=== PATIENT | female | born 1990 | race Caucasian/White ===

== ENCOUNTER 2018-05-29 18:22 | Outpatient (CLI) | END 2018-05-29 21:10 | disposition home or self-care (01) ==

== ENCOUNTER 2018-07-06 14:00 | Inpatient (IN) | payer OTHER ==
[~2018-07-06] VITALS: Ht 167.6 cm; Wt 78.1 kg
[~2018-07-06 14:00] MED LIST: FERR134T PO; PREN-19 PO
[2018-07-06 14:37] VITALS: Ht 167.6 cm; Wt 78.1 kg
[2018-07-06 18:35] VITALS: BP 128/76; PULSE 92; RESP 18
--- NOTE | 2018-07-06 20:06 | HP ---
Date/Time of Note Date/Time of Note DATE: 07/06/18 TIME: 20:03 OB - History Hx of Present Free Text/Dictation Patient is a 27-year-old 4 para 1 at 40 weeks and 1 day of gestation with estimated date of delivery July 05, 2018 Patient presents for NST and BPP for postdates She reports positive movement, denies any contractions, denies any vaginal bleeding or leaking fluid GBS status is unknown Past obstetrical history significant for x1 Estimated Due Date: Jul 05, 2018 : 4 Para: 1 Care: Good Care Past Family/Social History * Past Medical, Surgical, Family and Obstetric Histories reviewed from chart. OB Admission Exam Vital Signs Vital Signs Vital Signs Date Temp Pulse Resp B/P (MAP) Pulse Ox O2 O2 Flow FiO2 Time Delivery Rate 07/06/18 98.7 92 18 128/76 Room Air 18:35 (93) Physical Exam HEENT: WNL Heart: Rhythm Normal Lungs: Clear, Equal Abdomen: WNL Extremities: Normal Reflexes: Normal Cervical Dilatation: None Effacement: 0% Station: -3 Membranes: Intact Heart Rate: 140's Accelerations: Accelerations Present Decelerations: No Decelerations Varibility: Moderate Contractions on Admission: None Last 72 hours Lab Results PROCEDURE: US OB biophysical profile. CLINICAL INDICATION: post dates evaluate well-being TECHNIQUE: Multiple sonographic images of the pelvis were obtained. The image s were reviewed on a PACS workstation. COMPARISON: 05/29/2018 FINDINGS: There is a single intrauterine gestation. There is a normal amount of amniotic fluid with an RAVI = 15 cm . Cardiac activity is present with 144 beats per minute There is a vertex presentation. The placenta is anterior. Biophysical profile: movement 2/2 tone 2/2. breathing 2/2 RAVI 2/2 Total 02/13 IMPRESSION: 1. Normal biophysical profile of 02/13. 2. Single intrauterine gestation in cephalic presentation. 3. Anterior placenta without evidence of previa or abruption. RPTAT:AAJJ Physician Claudia Date Time Electronically viewed and signed by Physician Claudia on 07/06/2018 15:43 MC/ CC: CODIE ROBERTSON MD [id number] PROCEDURE: US OB. CLINICAL INDICATION: post dates pelvic pain TECHNIQUE: Multiple transabdominal sonographic images of the pelvis and gravid uterus were obtained. The images were reviewed on a PACS workstation. COMPARISON: 05/29/2018 FINDINGS: Cervix: Not well visualized to Gestation: Single viable intrauterine gestation. Cardiac activity: 140 beats per minute Presentation: Vertex. Placenta: Location: Anterior. Appearance: No previa or abruption. Amniotic Fluid: RAVI = 15 cm Measurements: BPD = 9.2 cm 37 weeks 1 day HC = 33.1 cm 37 weeks 4 days AC = 36.6 cm 40 weeks 4 days FL = 7.4 cm 37 weeks 5 days Gestational Age: AUA estimated gestational age: 38 weeks 2 days AUA estimated date of delivery: 07/18/2018. There has been normal interval growth when compared to the previous study. The EFW = 3700 g plus/minus 555 g (57%) Structures: The anatomy is not well evaluated on this limited scan. IMPRESSION: 1. Single viable intrauterine gestation of 38 weeks 2 days by ultrasound c noemieria. 2. Estimated date of delivery of 07/18/2018. There has been normal interval growth when compared to the previous study. . 3. Estimated weight is 37 100 g plus/minus 555 g (57%). RPTAT:AAJJ Physician Claudia Date Time Electronically viewed and signed by Physician Claudai on 07/06/2018 15:42 MC/ CC: CODIE ROBERTSON MD [id number] OB Assessment/Plan Reason for admission: section Plan: Section (Postdates) Other plan: Admit to labor and delivery Keep n.p.o. after midnight Plan for repeat in TOI Murray MD Jul 06, 2018 20:06
[2018-07-06] MEDS ORDERED: METHYLERGONOVINE 0.2 MG INJ IM PRN (22:00)
[2018-07-06] MEDS ORDERED: CEFAZOLIN 2 GM/50 ML (PMX) 50 ML IVPB SCH (22:00)
[2018-07-06] MEDS ORDERED: OXYTOCIN 30 UNITS/LR 500 ML IV PRN (22:00)
[2018-07-06] MEDS ORDERED: MISOPROSTOL 200 MCG TAB PR PRN (22:00)
[2018-07-06] MEDS ORDERED: CARBOPROST 250 MCG INJ IM PRN (22:00)
[2018-07-06] MEDS: LACTATED RINGER'S 1,000 ML IV SCH (23:28)
[2018-07-07] MEDS: LACTATED RINGER'S 1,000 ML IV SCH ×2 (06:02→12:34)
[2018-07-07] MEDS ORDERED: PROPOFOL 200 MG INJ ONE (07:00)
[2018-07-07] MEDS ORDERED: CITRIC ACID/NA CITRATE 30 ML CUP PO ONE (09:30)
--- NOTE | 2018-07-07 09:58 | PREAC ---
Date/Time of Note Date/Time of Note DATE: 07/07/18 TIME: 09:56 Anesthesia Eval and Record Evaluation Time Pre-Procedure Interview DATE: 07/07/18 TIME: 09:56 Age 27 Sex female NPO: 8 hrs Preoperative diagnosis repeat c section Planned procedure c section Past Medical History Past Medical History: Includes : Gestational age: (40.1) Surgery & Anesthesia Issues No known issue Meds Anticoagulation: No Beta Corinne within 24 hr: No Reason Beta Corinne not given: Pt. not on B-Corinne Reported Medications Vit #76/Iron,Carb/FA (Prenatabs Rx Tablet) 1 Each Tablet, 1 EACH PO DAILY, TAB 05/29/18 Ferrous Sulfate (Iron) 134 Mg Tablet, 134 MG PO DAILY, TAB 05/29/18 Current Medications Lactated Ringer's 1,000 ml @ 125 mls/hr Q8H IV Last administered on 07/07/18at 06:02; Admin Dose 125 MLS/HR; Start 07/06/18 at 21:31 Cefazolin Sodium/ Dextrose 50 ml @ 100 mls/hr ONCE IVPB ; Start 07/06/18 at 22:00 Oxytocin/Lactated Ringer's 500 ml @ 0 mls/hr ONCE PRN IV VAGINAL BLEEDING; Start 07/06/18 at 22:00 Methylergonovine Maleate (Methergine) 0.2 mg ONCE PRN IM VAGINAL BLEEDING; Start 07/06/18 at 22:00 Carboprost Tromethamine (Hemabate) 250 mcg ONCE PRN IM VAGINAL BLEEDING; Start 07/06/18 at 22:00 Misoprostol (Cytotec) 1,000 mcg ONCE PRN DC VAGINAL BLEEDING; Start 07/06/18 at 22:00 Meds reviewed: Yes Allergies Coded Allergies: No Known Allergy (Unverified , 05/29/18) Allergies Reviewed: Yes Labs/Studies Labs Reviewed: Reviewed by anesthesiologist Result Diagram: 07/06/188 Laboratory Tests 07/06/18 21:57 Blood Bank Test 07/06/18 21:57 Antibody Screen NEGATIVE Blood Type O NEGATIVE Rh Immune Globulin Candidate test: Positive Studies: ECG (n/a), CXR (n/a) Pre-procedure Exam Last vitals Vital Signs Date Temp Pulse Resp B/P (MAP) Pulse Ox O2 O2 Flow FiO2 Time Delivery Rate 12/29/18 98.7 92 18 128/76 Room Air 18:35 (93) Airway: Adequate mouth opening Mallampati: Mallampati I Teeth: Normal Lung: Normal Heart: Normal ASA Physical Status ASA physical status: 2 Emergency: None Planned Anesthetic Neuraxial: Spinal Planned Pain Management Sub-arachniod narcotics Pre-operative Attestations Prior to commencing anesthesia and surgery, the patient was re-evaluated, there was verification of: *The patient's identity *The results of appropriate recent lab work and preoperative vital signs *The above evaluation not changing prior to induction *Anesthetic plan, risk benefits, alternative and complications discussed with patient/family; questions answered; patient/family understands, accepts and wishes to proceed. MADY CLEVELAND MD Jul 07, 2018 09:57
[2018-07-07] MEDS ORDERED: KETOROLAC 30 MG INJ ONE (14:01)
[2018-07-07] MEDS ORDERED: BUPIVACAINE 0.75%/DEXT (SPINAL) 2 ML INJ ONE (14:01)
[2018-07-07] MEDS ORDERED: OXYTOCIN 30 UNITS/LR 500 ML IV ONE ×2 (14:01→14:49)
[2018-07-07] MEDS ORDERED: morphine SULFATE/PF (10 MG/10 ML) INJ ONE (14:01)
[2018-07-07] MEDS ORDERED: METOCLOPRAMIDE 10 MG INJ ONE (14:01)
[2018-07-07] MEDS ORDERED: ONDANSETRON 4 MG INJ ONE (14:01)
[2018-07-07] MEDS ORDERED: FENTAnyl 50 MCG/ML VIAL ONE (14:28)
--- NOTE | 2018-07-07 15:21 | OPR ---
Operative Report Planned Procedure Free Text/Dictation 27 years old white female 40 weeks and 2 days with history of previous . On admission patient desired however later on she declined further trial of labor requested repeat location of surgery including but not limited to bowel bladder injury wound infection and wound hematoma discussed ,she would like to proceed with the operation Procedure date Jul 07, 2018 Procedure(s) Repeat Performed by see signature line Icer Air Conditioning: JULIAN PIMENTEL MD 2nd Icer Air Conditioning None Anesthesiologist: MADY CLEVELAND MD Pre-procedure diagnosis 40 weeks weeks 2 days , history of previous . Declined . Requesting repeat [id number] Anesthesia Type: [id number] spinal Post-Procedure Post-procedure diagnosis Same as above Findings Live Baby girl 8 and 9 Estimated Blood Loss: 500 - 600 mls Specimen(s) none Grafts/Implant(s) none Complication(s) none Pt Condition post procedure: stable Procedure Description Under satisfactory spinal anesthesia patient prepped and draped and placed in supine position. Pfannenstiel incision was made old scar was removed. Incision carried through the subcutaneous tissue. Fascia incised to the length of incision. Rectus muscle divided in midline. Peritoneum exposed and entered to a vertical incision. Exploration of abdomen revealed [gravid uterus at term normal-appearing tubes and ovaries.] Bladder flap was developed. Transverse incision was made in the lower segment of the uterus. Amniotic sac ruptured, [clear amniotic fluid noted.]Live baby girl was delivered from unengaged vertex.Naso oropharyngeal suction was performed. Baby handed to the team for immediate attention. Patient received 20 units of Pitocin. Placenta delivered manually intact. Uterine cavity cleaned with a wet sponge and drainage established. Uterus closed in 2 layers using Monocryl #1 in continuous fashion. Peritoneal cavity irrigated with warm saline. Sponge needle instrument reported to be correct. Abdominal peritoneum closed with 2-0 chromic catgut continuously. Fascia closed with #1 PDS in a continuous fashion. Subcutaneous tissue irrigated with warm saline and approximated with 2-0 chromic catgut skin closed with N sorb. Estimated blood loss 600 cc []. Urine bag containing [200] mL of [clear] urine. Patient tolerated procedure well and transferred to recovery room in good condition. CODIE ROBERTSON MD Jul 07, 2018 15:21
--- NOTE | 2018-07-07 15:28 | PAC ---
Date/Time of Note Date/Time of Note DATE: 07/07/18 TIME: 15:28 Post-Anesthesia Notes Post-Anesthesia Note Last documented vital signs Vital Signs Date Temp Pulse Resp B/P (MAP) Pulse Ox O2 O2 Flow FiO2 Time Delivery Rate 07/06/18 98.7 92 18 128/76 98 Room Air 18:35 (93) Activity: WNL Respiratory function: WNL Cardiovascular function: WNL Mental status: Baseline Pain reasonably controlled: Yes Hydration appropriate: Yes Nausea/Vomiting absent: No MADY CLEVELAND MD Jul 07, 2018 15:28
[2018-07-07] MEDS ORDERED: morphine (1 MG/ML) 10ML SYRINGE IV PRN ×3 (15:30)
[2018-07-07] MEDS ORDERED: ONDANSETRON 4 MG INJ IV PRN ×2 (15:30)
[2018-07-07] MEDS ORDERED: NALOXONE (0.4 MG/ML) INJ IV PRN (15:30)
[2018-07-07] MEDS ORDERED: KETOROLAC 30 MG INJ IV PRN (15:30)
[2018-07-07] MEDS ORDERED: DIPHENHYDRAMINE 50 MG INJ IV PRN ×2 (15:30)
[2018-07-07] MEDS ORDERED: morphine 2 MG INJ IV PRN ×3 (15:30)
[2018-07-07 17:20] VITALS: BP 123/72; PULSE 76; RESP 18
[2018-07-07] MEDS ORDERED: OXYTOCIN 30 UNITS/LR 500 ML IV PRN (17:30)
[2018-07-07] MEDS ORDERED: METHYLERGONOVINE 0.2 MG INJ IM PRN (17:30)
[2018-07-07] MEDS ORDERED: LANOLIN HPA 1 PKT TOP PRN (17:30)
[2018-07-07] MEDS ORDERED: MISOPROSTOL 200 MCG TAB PR PRN (17:30)
[2018-07-07] MEDS ORDERED: OXYCODONE/ACETAMINOPHEN (5/325) TAB PO PRN ×2 (17:30)
[2018-07-07] MEDS ORDERED: CARBOPROST 250 MCG INJ IM PRN (17:30)
[2018-07-07] MEDS ORDERED: HYDROCODONE/APAP (5/325) TAB PO PRN (17:30)
[2018-07-07] MEDS ORDERED: CEFAZOLIN 1 GM/50 ML (PMX) 50 ML IVPB SCH (17:30)
[2018-07-07 18:00] VITALS: BP 121/71; PULSE 81; RESP 18
[2018-07-07 18:42] VITALS: BP 124/72; PULSE 78; RESP 18
[2018-07-07] MEDS: OXYTOCIN 30 UNITS/LR 500 ML IV SCH (19:56)
[2018-07-07 20:00] VITALS: BP 125/76; PULSE 76; RESP 19
[2018-07-07] MEDS: SENNA/DOCUSATE NA (8.6MG/50MG) TAB PO SCH (21:25)
[2018-07-08] VITALS: BP 123/68; PULSE 88; RESP 20
[2018-07-08] MEDS: OXYTOCIN 30 UNITS/LR 500 ML IV SCH ×5 (01:27→10:57)
[2018-07-08] MEDS: KETOROLAC 30 MG INJ IV PRN ×3 (02:46→14:25)
--- NOTE | 2018-07-08 03:05 | NUR ---
SONJA CARE DONE
--- NOTE | 2018-07-08 03:10 | NUR ---
ASSISTED PATIENT TO AMBULATE TO CHAIR. PATIENT TOLERATED AMBULATION AND SITTING WELL.
--- NOTE | 2018-07-08 03:30 | NUR ---
ASSISTED PATIENT FROM CHAIR TO BED. PATIENT TOLERATED WELL AMBULATION AND REPOSITIONING IN BED.
[2018-07-08 04:00] VITALS: BP 108/65; PULSE 86; RESP 16
--- NOTE | 2018-07-08 05:23 | NUR ---
EOSS: PATIENT IN STABLE CONDITION. BONDING WELL WITH . . SMALL AMOUNT OF LOCHIA, FUNDUS FIRM. ORIGINAL DRESSING DRY AND INTACT. MCCLELLAN CATHETER IN PLACE. AFEBRILE.
--- NOTE | 2018-07-08 06:00 | NUR ---
LAST SONJA CARE WAS DONE AROUND 3AM, PATIENT REFUSED SONJA CARE AT THIS TIME.
--- NOTE | 2018-07-08 07:34 | OPPN ---
Date/Time of Note Date/Time of Note DATE: 07/08/18 TIME: 07:34 Anesthesia Follow up Anesthesia Follow up Last documented vital signs Vital Signs Date Temp Pulse Resp B/P (MAP) Pulse Ox O2 O2 Flow FiO2 Time Delivery Rate 07/08/18 97.3 86 16 108/65 94 Room Air 04:00 (79) Respiratory function: WNL Cardiovascular function: WNL Comments a 27 year female s/p duramorph for post op pain POD#1 is doing fine. No headache, N/V, itching, neural deficit, or pain. MADY CLEVELAND MD Jul 08, 2018 07:34
[2018-07-08 08:30] VITALS: BP 115/62; PULSE 97; RESP 18
[2018-07-08] MEDS: SENNA/DOCUSATE NA (8.6MG/50MG) TAB PO SCH ×2 (08:44→21:28)
--- NOTE | 2018-07-08 09:49 | QN ---
Documentation Comment Post repeat day 1 Afebrile Vital signs are stable Abdomen soft. Incision dry. Ambulation encouraged post DC IV Extremities normal CODIE ROBERTSON MD Jul 08, 2018 09:49
[2018-07-08 12:45] VITALS: BP 119/72; PULSE 94; RESP 18
--- NOTE | 2018-07-08 14:40 | NUR ---
PT MCCLELLAN D/C CATHETER TIP INTACT PT TOLERATED WELL ,SONJA CARE DONE PT INFORMED TO CALL FOR ASSISTANCE FIRST TIME OUT OF BED CALL LIGHT WITHIN REACH PT VERBALIZED UNDERSTANDING
[2018-07-08 15:45] VITALS: BP 117/70; PULSE 87; RESP 18
[2018-07-08] MEDS: IBUPROFEN 600 MG TAB PO SCH ×2 (17:45→23:40)
--- NOTE | 2018-07-08 18:48 | NUR ---
PT BONDING WELL WITH AMBULATING WITHOUT DIFFICULTY HAS VOIDED 2 TIMES PASSING GAS , BREAST FEEDING WELL SEEN BY DENIES ANY DISCOMFORTS AT TIME
[2018-07-08 19:50] VITALS: BP 120/78; PULSE 100; RESP 18
[2018-07-09] MEDS: HYDROCODONE/APAP (5/325) TAB PO PRN ×3 (01:16→18:22)
[2018-07-09 04:15] VITALS: BP 127/82; PULSE 80; RESP 18
[2018-07-09] MEDS: IBUPROFEN 600 MG TAB PO SCH ×3 (05:50→17:35)
--- NOTE | 2018-07-09 06:29 | NUR ---
EOSS: Patient's vital signs are stable, post delivery and pain management protocol effective. Seem to have difficulty coping with parenting and is kind of emotionally unstable due to observance of pt. found sobbing while caring for baby. Had to help her with changing diaper for her baby as requested.Wants her dressing from her incision removed after she takes a shower today.Voiding without difficulty but with no BM. Plan of care ongoing.
[2018-07-09] MEDS: OXYTOCIN 30 UNITS/LR 500 ML IV SCH ×4 (09:27→21:27)
[2018-07-09] MEDS: SENNA/DOCUSATE NA (8.6MG/50MG) TAB PO SCH ×2 (09:47→21:33)
--- NOTE | 2018-07-09 11:32 | QN ---
Documentation Comment POD#2 is stable No VB +BM +voids VS stable Gen NAD Abd soft NT ND Incision intact Genitalia No blood at perineum --->Ambulation EVY LIZARRAGA M.D. Jul 09, 2018 11:32
--- NOTE | 2018-07-09 13:23 | NUR ---
SS NOTE REFERRAL FOR DIFFICULTY COPING WITH PARENTING AND SEEMS EMOTIONALLY UNSTABLE. PER RN, RAND, PM RN HEARD PT CRYING LAST NIGHT, HOWEVER APPROPRIATE WITH THIS RN TODAY. SPOKE WITH PT AT BEDSIDE. PT IS A 27 YO S/P DELIVERY 06/27/18. PT LIVES WITH HEATHER EPSTEIN, 19MONTH OLD AND HER PARENTS. 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 PT CURRENTLY ON MIRI DISABILITY. PT REPORTED SHE WAS CRYING DUE TO A LOT OF PAIN WHEN BABY LATCHES ON. PT REPORTED SHE HAS BEEN WORKING WITH [employer] MANAGER AND SPOKE WITH HEAD [employer] WHO BELIEVE BABY MAY HAVE A TONGUE TIE. PT DENIED ANY PSYCHOSOCIAL STRESSORS OR ISSUES. PT STATED FOB AND HER PARENTS ARE INVOLVED AND SUPPORTIVE. PT HAS A CAR SEAT AND PLAN IS FOR BABY TO GO HOME WITH PARENTS. Addendum: 07/09/18 at 1328 by AUDREY GUAMAN Amended: Links added.
[2018-07-09] MEDS ORDERED: NA PHOSPHATE/BIPHOS 133 ML ENEMA PR ONE (14:30)
[2018-07-09 16:00] VITALS: BP 111/69; PULSE 79; RESP 18
--- NOTE | 2018-07-09 17:50 | NUR ---
EOSS: ambulating.pt pleasant .bonding well with baby.
[2018-07-09 20:45] VITALS: BP 115/69; PULSE 80; RESP 20
[2018-07-10] MEDS: IBUPROFEN 600 MG TAB PO SCH ×3 (00:02→12:09)
[2018-07-10] MEDS: OXYTOCIN 30 UNITS/LR 500 ML IV SCH ×4 (01:27→13:27)
[2018-07-10] MEDS: HYDROCODONE/APAP (5/325) TAB PO PRN ×2 (03:45→10:35)
[2018-07-10 05:52] VITALS: BP 121/69; PULSE 79; RESP 18
--- NOTE | 2018-07-10 07:07 | NUR ---
EOSS: Pt in stable condition. Pt starting to get engorge and pt was emotional this morning. Encouraged pt frequent or pumping. Pt verbalized understanding. Offered assistance with . Up and ambulating. Bonding well with baby. Pt requested baby to nursery so she and her S/O get some rest. Pt and S/O expressed lack of sleep. Baby brought to nursery per pt and S/O request.
[2018-07-10] MEDS ORDERED: DIPHTH/TET/ACEL PERTUSS (ADULT) 0.5 ML VIAL IM* ONE (09:00)
--- NOTE | 2018-07-10 09:36 | PD.PPDC ---
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 Condition [id number] Patient Condition: Khoiy5a Good Diet Boghb7Ed Diet: Blcrb6s Resume Regular Diet Activity/Restrictions [id number] Activity: [id number] Normal Activity May Shower [id number] Restrictions: Mctfi7u No Exercising No Lifting No Driving No Sexual Activity Nothing in the Vagina No [place] No Tampons, douche Wound/Drain Care Instructions [id number] Wound/Drain Care Tqysi7k Remove Steri Strips in 1 week Instructions: Follow-up Follow-up with Physician: 1, Week/Weeks Provider Information: Post instruction given recommended to make appointment to be seen at the clinic in 1 week Return to clinic for [id number] OCULAR CARE TECHNOLOGIST Instructions: Kzjms7y Fever greater than 101 Chills Worsening abdominal pain Excessive Vaginal Bleeding More than 2 pads per hour Unable to tolerate diet [id number] OB Instructions: Kcnce6a Breast Tenderness Depression Blurried Vision Headache [id number] Surgical Instructions: [id number] Incisional Drainage Incisional Redness CODIE ROBERTSON MD Jul 10, 2018 09:36
--- NOTE | 2018-07-10 09:39 | DS ---
Date/Time of Note Date/Time of Note DATE: 07/10/18 TIME: 09:37 Discharge Summary Admission/Discharge Info Admit Date/Time Jul 06, 2018 at 18:00 Discharge Date/Time July 10, 2018 at 9:30 AM Discharge Diagnosis Post repeat day 3 Patient Condition: Good Consults None Procedures Repeat Hx of Present Illness Term history of previous Hospital Course Satisfactory recovery uneventful Home Meds Reported Medications Vit #76/Iron,Carb/FA (Prenatabs Rx Tablet) 1 Each Tablet, 1 EACH PO DAILY, TAB 05/29/18 Ferrous Sulfate (Iron) 134 Mg Tablet, 134 MG PO DAILY, TAB 05/29/18 Primary Care Provider [facility] Time spent on discharge: < 30 minutes CODIE ROBERTSON MD Jul 10, 2018 09:39
[2018-07-10] MEDS: SENNA/DOCUSATE NA (8.6MG/50MG) TAB PO SCH (10:34)
[2018-07-10 11:13] VITALS: BP 130/75; PULSE 85; RESP 20
--- NOTE | 2018-07-10 14:20 | NUR ---
PT DISCHARGED HOME, DOING WELL, BONDING WITH BABY. DISCUSSED AND REINFORCED POST OP AND POST CARE. INSTRUCTED PT TO KEEP INCISION CLEAN AND DRY. PT TO FOLLOW UP IN 1-2 WEEKS AT THE CLINIC FOR STERI-STRIPS REMOVAL. PT VERBALIZED UNDERSTANDING. Addendum: 07/10/18 at 1447 by KAR VALDOVINOS RN Amended: Links added.
== END 2018-07-10 14:25 | disposition home or self-care (01) | DRG 788 ==
LOC: L-D 14:00 → OBT 14:00 → L-D 18:00 → PP1 07-07 17:22
PROVIDERS: ADMIT Obstetrics & Gynecology; ATTEND Obstetrics & Gynecology
PROC: 10D00Z1 Extraction of Products of Conception, Low, Open Approach (ICD-10-PCS; principal; 2018-07-07)
DX: O48.0 Post-term pregnancy (principal); O34.211 Maternal care for low transverse scar from previous cesarean delivery; Z3A.40 40 weeks gestation of pregnancy; Z37.0 Single live birth
CPT/HCPCS: 76816; 76818; 85025; 85610; 85730; 86592; 86850; 86900; 86901; 87340; 99464; G0463; J0690; J1885; J2210; J2274; J2405; J2590; J2765; J3010; J7120